=== PATIENT | male | born 2000 | race Caucasian/White ===

== ENCOUNTER → 2022-04-29 | Outpatient (CLI) | payer BC ==
--- NOTE | 2022-04-29 12:32 | Diagnostic Imaging Report ---
CLINICAL INDICATION: Patient with cough and shortness of air. Patient with hot flashes and complete loss of appetite. EXAM: Chest x-ray PA and lateral views. COMPARISON: None. FINDINGS: Lungs/pleura: There are [id number]-sized patchy infiltrates involving both lung bases, most consistent with pneumonia. There is no pneumothorax. There is no pleural effusion. Mediastinum: Unremarkable. Pulmonary vasculature: Unremarkable. Heart: Unremarkable. Bones/extrathoracic soft tissue: Unremarkable. IMPRESSION: Bilateral lungs lower lobe pneumonia. Results of this report were discussed with the sales assistant entertainment and media working with Dr. Mathew via the telephone on 04/29/2022 at 1225 hours. Dictated by: Dictated on workstation # [id number]
== END ==
LOC: RAD 11:53
PROVIDERS: ATTEND Internal Medicine
DX: J18.9 Pneumonia, unspecified organism (principal)
CPT/HCPCS: 71046